=== PATIENT | female | born 1995 | race African-American/Black ===

== ENCOUNTER → 2018-06-21 | Outpatient (CLI) | payer OTHER ==
--- NOTE | 2018-06-21 14:13 | KCIC ---
Right breast ultrasound: Reason for examination: Lump felt clinically in the right breast at the 10:00 position 5 cm from the nipple. Ultrasound examination of the right breast was performed in the area of clinical concern in the 10:00 position 5 cm from the nipple and in the upper outer quadrant and right axilla. There is some focal dense fibroglandular tissue with some minimal heterogeneity in the 10:00 position but a discrete nodule is not identified within this tissue. No other focal lesions are seen in the upper outer quadrant. No abnormal appearing lymph nodes are seen in the right axilla. IMPRESSION: Focal dense fibroglandular tissue in the upper outer quadrant with some mild heterogeneity in the 10:00 position. No discrete nodules are seen however. Recommend reevaluation with ultrasound 3 months. BI-RADS Category 3: Probably Benign. "Our facility is accredited by the [employer] Mammography [employer]." This patient's information has been entered into a reminder system for the patient to be notified with the results of her examination and a target date for the next mammogram. Electronically signed by: Renu Galdamez MD (06/21/2018 2:09 PM) [id number]
--- NOTE | 2018-06-21 14:33 | KCIC ---
Pelvic ultrasound Clinical Indication: Pelvic pain.. . TRANSABDOMINAL SCAN Suboptimal visualization of uterus and adnexa. TRANSVAGINAL SCAN Uterus: * Size (in centimeters): 6.5 cm x 3.8 cm x 5.5 cm * Appearance: Partially septated appearance of the endometrial canal. The right endometrium measures 9.8 mm. The left endometrium measures 6.6 mm. The septum does not involve the cervix. There is a small lesion at the posterior left uterus, most likely a fibroid measuring 17 mm diameter. Right ovary: * Size: 3.4 cm long axis. * Blood flow: Intact * Appearance: Small follicles Left ovary: * Size: 3.0 cm long axis. * Blood flow: Intact * Appearance: Complex nodule measuring 11 mm demonstrates hypervascularity at its peripheral aspect. Free fluid: Mild fluid in the cul-de-sac and in the right adnexa. IMPRESSION: 1. Subseptate uterus. 2. Small left uterine lesion most likely a 17 mm fibroid. 3. Complex hypervascular nodule left ovary, indeterminate etiology. Recommend short-term ultrasound follow-up in 2-6 weeks. 4. Mild pelvic fluid. Electronically signed by: Tony Hernandez MD (06/21/2018 2:28 PM) [id number]
== END | disposition home or self-care (01) ==
LOC: KCIC US 12:09
PROVIDERS: ATTEND Obstetrics & Gynecology
DX: N63.11 Unspecified lump in the right breast, upper outer quadrant (principal); N85.9 Noninflammatory disorder of uterus, unspecified
CPT/HCPCS: 76641; 76830; 76856

== ENCOUNTER → 2018-11-04 | Outpatient (CLI) | payer SELFPAY ==
--- NOTE | 2018-11-04 14:51 | KCIC ---
Right breast ultrasound: Reason for examination: Follow-up lump felt by clinician. Patient no longer feels the lump. Comparison is made to previous study dated 06/21/2018. Ultrasound examination was performed in the area of clinical concern and the right axilla. There is dense fibroglandular tissue and there is some ductal ectasia in the subareolar positions. There are no discrete cystic or solid nodules. No abnormal appearing lymph nodes are seen in the axilla. IMPRESSION: Dense parenchyma with some ductal ectasia. No suspicious abnormality seen. Recommend clinical correlation and routine mammographic follow-up. BI-RADS Category 2: Benign. "Our facility is accredited by the [employer] Mammography [employer]." This patient's information has been entered into a reminder system for the patient to be notified with the results of her examination and a target date for the next mammogram. Electronically signed by: Renu Galdamez MD (11/04/2018 2:48 PM) [id number]
== END | disposition home or self-care (01) ==
LOC: KCIC US 12:51
PROVIDERS: ATTEND Surgery
DX: N60.41 Mammary duct ectasia of right breast (principal)
CPT/HCPCS: 76641

== ENCOUNTER 2019-12-18 11:17 | Emergency (ER) | payer SELFPAY ==
[~2019-12-18] VITALS: Ht 175.3 cm; Wt 128.0 kg
[2019-12-18] MEDS ORDERED: IV NORMAL SALINE 1000ML BAG 1,000 ML IV ONE (11:45)
[2019-12-18] MEDS ORDERED: METOPROLOL TARTRATE 5 MG/5 ML VIAL. IVP ONE (11:45)
[2019-12-18 11:58] LABS: BASO % 0 % (0-3); EOS # 0.2 x10^3/uL (0.0-0.7); EOS % 3 % (0-3); HEMATOCRIT 34.6 % (36.0-47.0); HEMOGLOBIN 11.7 g/dL (12.0-15.5); LYMPH # 1.3 x10^3/uL (1.0-4.8); LYMPH % 22 % (24-48); MEAN CORPUSCULAR HEMOGLOBIN 29 pg (25-35); MEAN CORPUSCULAR HGB CONC 34 g/dL (31-37); MEAN CORPUSCULAR VOLUME 87 fL (79-100); MONO # 0.5 x10^3/uL (0.0-1.1); MONO % 8 % (0-9); NEUT # 4.2 x10^3/uL (1.8-7.7); NEUT % 67 % (31-73); PLATELET COUNT 255 x10^3/uL (140-400); RED CELL DISTRIBUTION WIDTH 13.5 % (11.5-14.5); WHITE BLOOD COUNT 6.2 x10^3/uL (4.0-11.0)
[2019-12-18 12:06] LABS: PROTHROMBIN TIME PATIENT 14.7 SEC (11.7-14.0)
[2019-12-18 12:08] LABS: CALCIUM 8.7 mg/dL (8.5-10.1); GFR 82.4; POTASSIUM 3.8 mmol/L (3.5-5.1)
[2019-12-18 12:13] LABS: ALBUMIN 3.1 g/dL (3.4-5.0); ALBUMIN/GLOBULIN RATIO 0.7 (1.0-1.7); MAGNESIUM 1.7 mg/dL (1.8-2.4); TOTAL BILIRUBIN 0.5 mg/dL (0.2-1.0); TOTAL PROTEIN 7.3 g/dL (6.4-8.2)
[2019-12-18 12:21] LABS: BILIRUBIN,URINE SMALL (NEG); CLARITY,URINE CLEAR; COLOR,URINE YELLOW; NITRITE,URINE NEGATIVE (NEG); PROTEIN,URINE 30 mg/dL (NEG-TRACE)
[2019-12-18 12:25] LABS: BARBITURATES NEG (NEG); BENZODIAZEPINES NEG (NEG); CANNABINOIDS NEG (NEG); COCAINE NEG (NEG); METHADONE NEG (NEG); OPIATES NEG (NEG); PHENCYCLIDINE NEG (NEG)
[2019-12-18 12:29] LABS: BACTERIA,URINE 0 /HPF (0-FEW); RBC,URINE 0 /HPF (0-2); SQUAMOUS EPITHELIAL CELL,UR FEW /LPF; WBC,URINE 0 /HPF (0-4)
[2019-12-18] MEDS ORDERED: IOHEXOL 350 MG/ML 100 ML VIAL. IV ONE (12:30)
[2019-12-18] MEDS ORDERED: CONTRAST GIVEN. MC PRN (12:30)
[2019-12-18 12:36] LABS: AMPHETAMINE/METHAMPHETAMINE NEG (NEG)
[2019-12-18 12:52] VITALS: BP 128/85
--- NOTE | 2019-12-18 13:05 | PHYS DOC ---
Past Medical History Past Medical History: No Pertinent History Past Surgical History: Cholecystectomy Smoking Status: Never Smoker Alcohol Use: None General Adult EDM: Chief Complaint: RAPID HEART RATE HPI: HPI: Patient is a 24-year-old female who is a few days postop of a laparoscopic cholecystectomy. She is also traveled here from [place]. She presents with an elevated heart rate as well as complaints of shortness of breath with exertion. She denies any fever chills or sweats. She states she does not have any significant abdominal pain. She denies hemoptysis. She is not had any cough or congestion. She denies any lower extremity swelling. She states the primary thing that is bothering her today is that she has an elevated heart rate. [] Review of Systems: Review of Systems: Constitutional: Denies fever or chills. [] Eyes: Denies change in visual acuity. [] HENT: Denies nasal congestion or sore throat. [] Respiratory: Per HPI [] Cardiovascular: Palpitations as described in the HPI. [] GI: Denies abdominal pain, nausea, vomiting, bloody stools or diarrhea. [] : Denies dysuria. [] Musculoskeletal: Denies back pain or joint pain. [] Integument: Denies rash. [] Neurologic: Denies headache, focal weakness or sensory changes. [] Endocrine: Denies polyuria or polydipsia. [] Lymphatic: Denies swollen glands. [] Psychiatric: Reports anxiety [] Heart Score: Risk Factors: Risk Factors: DM, Current or recent (<one month) smoker, HTN, HLP, family history of CAD, obesity. Risk Scores: Score 0 - 3: 2.5% MACE over next 6 weeks - Discharge Home Score 4 - 6: 20.3% MACE over next 6 weeks - Admit for Clinical Observation Score 7 - 10: 72.7% MACE over next 6 weeks - Early Invasive Strategies Current Medications: Current Medications Medications (Trade) Dose Ordered Sig/Erik Start Time Stop Time Status Last Admin Dose Admin Info (CONTRAST GIVEN -- Rx MONITORING) 1 each PRN DAILY PRN 12/18/19 12:30 12/20/19 12:29 Iohexol (Omnipaque 350 Mg/ml) 100 ml 1X ONCE 12/18/19 12:30 12/18/19 12:31 DC Metoprolol Tartrate (Lopressor Vial) 5 mg 1X ONCE 12/18/19 11:45 12/18/19 11:53 DC Sodium Chloride 1,000 ml @ 1,000 mls/hr 1X ONCE 12/18/19 11:45 12/18/19 12:44 DC 12/18/19 12:16 1,000 MLS/HR Allergies: Allergies: Allergies Coded Allergies Type Severity Reaction Last Updated Verified No Known Drug Allergies 12/18/19 No Physical Exam: PE: Constitutional: Well developed, well nourished, mild distress, non-toxic appearance. [] HENT: Normocephalic, atraumatic, bilateral external ears normal, oropharynx moist, no oral exudates, nose normal. [] Eyes: PERRLA, EOMI, conjunctiva normal, no discharge. [] Neck: Normal range of motion, no tenderness, supple, no stridor. [] Cardiovascular: Tachycardic no murmur [] Lungs & Thorax: Bilateral breath sounds clear to auscultation [] Abdomen: Bowel sounds normal, soft, no tenderness, no masses, no pulsatile masses. [] Skin: Warm, dry, no erythema, no rash. [] Back: No tenderness, no CVA tenderness. [] Extremities: No tenderness, no cyanosis, no clubbing, ROM intact, no edema. [] Neurologic: Alert and oriented X 3, normal motor function, normal sensory function, no focal deficits noted. [] Psychologic: Very anxious [] Current Patient Data: Labs: Laboratory Tests Test 12/18/19 11:50 12/18/19 12:04 12/18/19 12:10 White Blood Count 6.2 x10^3/uL (4.0-11.0) Red Blood Count 4.00 x10^6/uL (3.50-5.40) Hemoglobin 11.7 g/dL (12.0-15.5) L Hematocrit 34.6 % (36.0-47.0) L Mean Corpuscular Volume 87 fL (79-100) Mean Corpuscular Hemoglobin 29 pg (25-35) Mean Corpuscular Hemoglobin Concent 34 g/dL (31-37) Red Cell Distribution Width 13.5 % (11.5-14.5) Platelet Count 255 x10^3/uL (140-400) Neutrophils (%) (Auto) 67 % (31-73) Lymphocytes (%) (Auto) 22 % (24-48) L Monocytes (%) (Auto) 8 % (0-9) Eosinophils (%) (Auto) 3 % (0-3) Basophils (%) (Auto) 0 % (0-3) Neutrophils # (Auto) 4.2 x10^3/uL (1.8-7.7) Lymphocytes # (Auto) 1.3 x10^3/uL (1.0-4.8) Monocytes # (Auto) 0.5 x10^3/uL (0.0-1.1) Eosinophils # (Auto) 0.2 x10^3/uL (0.0-0.7) Basophils # (Auto) 0.0 x10^3/uL (0.0-0.2) Prothrombin Time 14.7 SEC (11.7-14.0) H Prothrombin Time INR 1.2 (0.8-1.1) H Sodium Level 140 mmol/L (136-145) Potassium Level 3.8 mmol/L (3.5-5.1) Chloride Level 105 mmol/L (98-107) Carbon Dioxide Level 23 mmol/L (21-32) Anion Gap 12 (6-14) Blood Urea Nitrogen 17 mg/dL (7-20) Creatinine 1.0 mg/dL (0.6-1.0) Estimated GFR (Cockcroft-Gault) 82.4 BUN/Creatinine Ratio 17 (6-20) Glucose Level 85 mg/dL (70-99) Calcium Level 8.7 mg/dL (8.5-10.1) Magnesium Level 1.7 mg/dL (1.8-2.4) L Total Bilirubin 0.5 mg/dL (0.2-1.0) Aspartate Amino Transferase (AST) 18 U/L (15-37) Alanine Aminotransferase (ALT) 27 U/L (14-59) Alkaline Phosphatase 85 U/L (46-116) Troponin I Quantitative < 0.017 ng/mL (0.000-0.055) Total Protein 7.3 g/dL (6.4-8.2) Albumin 3.1 g/dL (3.4-5.0) L Albumin/Globulin Ratio 0.7 (1.0-1.7) L Thyroid Stimulating Hormone (TSH) 3.485 uIU/mL (0.358-3.74) Urine Color Yellow Urine Clarity Clear Urine pH 6.0 (<5.0-8.0) Urine Specific [place] 1.025 (1.000-1.030) Urine Protein 30 mg/dL (NEG-TRACE) Urine Glucose (UA) Negative mg/dL (NEG) Urine Ketones (Stick) >=80 mg/dL (NEG) Urine Blood Negative (NEG) Urine Nitrite Negative (NEG) Urine Bilirubin Small (NEG) Urine Urobilinogen Dipstick 1.0 mg/dL (0.2 mg/dL) Urine Leukocyte Esterase Negative (NEG) Urine RBC 0 /HPF (0-2) Urine WBC 0 /HPF (0-4) Urine Squamous Epithelial Cells Few /LPF Urine Bacteria 0 /HPF (0-FEW) Urine Opiates Screen Neg (NEG) Urine Methadone Screen Neg (NEG) Urine Barbiturates Neg (NEG) Urine Phencyclidine Screen Neg (NEG) Urine Amphetamine/Methamphetamine Neg (NEG) Urine Benzodiazepines Screen Neg (NEG) Urine Cocaine Screen Neg (NEG) Urine Cannabinoids Screen Neg (NEG) Urine Ethyl Alcohol Neg (NEG) POC Urine HCG, Qualitative Hcg negative (Negative) Laboratory Tests 12/18/19 11:50 Laboratory Tests 12/18/19 11:50 Vital Signs: Vital Signs Date Time Temp Pulse Resp B/P (MAP) Pulse Ox O2 Delivery O2 Flow Rate FiO2 12/18/19 11:55 82 16 100 12/18/19 11:30 98.2 156/87 (110) Room Air 98.2 EKG: EKG: [EKG: Normal sinus rhythm rate of [address]-T changes] Radiology/Procedures: Radiology/Procedures: [] Impression: PROCEDURE: CT ANGIOGRAPHY CHEST Examination: CT ANGIOGRAPHY CHEST History: Reason: shortness of breath suspected pulmonary embolus / Spl. Instructions: IV OMNI 350 100 MLS / History: Comparison/Correlation: None Findings: Axial images of the chest were obtained following IV contrast according to pulmonary arteriography protocol. Sagittal and coronal reformatted images were provided. Pulmonary arterial vasculature is normal with no thromboembolic disease. No infiltrates. No pneumothorax. No suspicious pulmonary nodule or mass lesions. Very small pleural effusions are present. Suture material of the stomach is evident. Surgical clips involve the left upper abdomen. Cholecystectomy. Bony structures are unremarkable. Impression: No PE. No infiltrate. Very small pleural effusions. Course & Med Decision Making: Course & Med Decision Making Pertinent Labs and Imaging studies reviewed. (See chart for details) [] Saschaon Disclaimer: Bubba Disclaimer: This electronic medical record was generated, in whole or in part, using a voice recognition dictation system. Departure Departure Impression: Primary Impression: Palpitations Additional Impression: Dyspnea on exertion Disposition: HOME, SELF-CARE Condition: STABLE Referrals: ISIDORO DEVINE MD (PCP) Patient Instructions: Palpitations Additional Instructions: Return to the emergency department with any new or concerning symptoms. It is very important that you follow with Dr. Devine as soon as possible. Justicifation of Admission Dx: Justifications for Admission: Justification of Admission Dx: No ERNESTINA MELÉNDEZ DO Dec 18, 2019 13:05
--- NOTE | 2019-12-18 13:06 | RAD ---
Examination: CT ANGIOGRAPHY CHEST History: Reason: shortness of breath suspected pulmonary embolus / Spl. Instructions: IV OMNI 350 100 MLS / History: Comparison/Correlation: None Findings: Axial images of the chest were obtained following IV contrast according to pulmonary arteriography protocol. Sagittal and coronal reformatted images were provided. Pulmonary arterial vasculature is normal with no thromboembolic disease. No infiltrates. No pneumothorax. No suspicious pulmonary nodule or mass lesions. Very small pleural effusions are present. Suture material of the stomach is evident. Surgical clips involve the left upper abdomen. Cholecystectomy. Bony structures are unremarkable. Impression: No PE. No infiltrate. Very small pleural effusions. PQRS Compliance Statement: One or more of the following individualized dose reduction techniques were utilized for this examination: 1. Automated exposure control 2. Adjustment of the mA and/or kV according to patient size 3. Use of iterative reconstruction technique Electronically signed by: Tico Paul MD (12/18/2019 1:03 PM) [id number]
--- NOTE | 2019-12-20 04:39 | EKG ---
[facility] [address] [place] [address] Test Date: 2019-12-18 Test Time: 11:31:15 Pat Name: NELI SHELTON Department: Room: Gender: F Curing Room Supervisor: : 1995 Requested By: ERNESTINA MELÉNDEZ Order Number: [id number] Reading MD: Measurements Intervals [place] Rate: 91 P: 59 MD: 158 QRS: 21 QRSD: 84 T: 22 QT: 366 QTc: 452 Interpretive Statements SINUS RHYTHM NO SPECIFIC ECG ABNORMALITIES RI6.01 No previous ECG available for comparison
== END 2019-12-18 14:15 | disposition home or self-care (01) ==
LOC: ER 11:17
DX: R06.09 Other forms of dyspnea (principal); R00.2 Palpitations; R06.02 Shortness of breath; Z90.49 Acquired absence of other specified parts of digestive tract; Z79.899 Other long term (current) drug therapy
CPT/HCPCS: 36415; 71275; 80053; 80307; 81001; 81025; 83735; 84443; 84484; 85025; 85610; 99285; J7030; Q9967; 93005

== ENCOUNTER 2020-04-16 01:32 | Emergency (ER) | payer SELFPAY ==
[~2020-04-16] VITALS: Ht 175.3 cm; Wt 113.6 kg
[2020-04-16 01:44] VITALS: BP 124/93
--- NOTE | 2020-04-16 01:50 | PHYS DOC ---
Past Medical History Past Medical History: No Pertinent History Past Surgical History: Cholecystectomy Smoking Status: Never Smoker Alcohol Use: None General Adult EDM: Chief Complaint: LOWER EXT PAIN HPI: HPI: History obtained for the patient. Patient is a 24-year-old female with a history of gastric sleeve surgery 4 months ago who presents with chief complaint of lower extremity pain. Patient states 2 weeks ago she began developing right posterior calf pain. States the pain transition to her left posterior calf and is now present in her left anterior thigh. Denies swelling. Denies redness. Denies increase in warmth. Denies trauma or injury. 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 Her greatest concern is that she may have a blood clot. She denies any immobilizations. Denies any history of blood clot in legs or lungs. Does not take any oral contraceptive medication. Denies smoking. Has not taken any pain medication prior to arrival because she states she does not want to. States pain is aching in nature. No other complaints. Review of Systems: Review of Systems: Constitutional: Denies fever or chills. [] Eyes: Denies change in visual acuity. [] HENT: Denies nasal congestion or sore throat. [] Respiratory: Denies cough or shortness of breath. [] Cardiovascular: Denies chest pain or edema. [] GI: Denies abdominal pain, nausea, vomiting, bloody stools or diarrhea. [] : Denies dysuria. [] Musculoskeletal: Positive for leg pain Integument: Denies rash. [] Neurologic: Denies headache, focal weakness or sensory changes. [] Endocrine: Denies polyuria or polydipsia. [] Lymphatic: Denies swollen glands. [] Psychiatric: Denies depression or anxiety. [] Heart Score: Risk Factors: Risk Factors: DM, Current or recent (<one month) smoker, HTN, HLP, family history of CAD, obesity. Risk Scores: Score 0 - 3: 2.5% MACE over next 6 weeks - Discharge Home Score 4 - 6: 20.3% MACE over next 6 weeks - Admit for Clinical Observation Score 7 - 10: 72.7% MACE over next 6 weeks - Early Invasive Strategies Allergies: Allergies: Allergies Coded Allergies Type Severity Reaction Last Updated Verified No Known Drug Allergies 12/18/19 No Physical Exam: PE: Constitutional: Well developed, well nourished, no acute distress, non-toxic appearance. [] HENT: Normocephalic, atraumatic, bilateral external ears normal, oropharynx moist, no oral exudates, nose normal. [] Eyes: PERRLA, EOMI, conjunctiva normal, no discharge. [] Neck: Normal range of motion, no tenderness, supple, no stridor. [] Cardiovascular:Heart rate regular rhythm, no murmur [] Lungs & Thorax: Bilateral breath sounds clear to auscultation [] Abdomen: Bowel sounds normal, soft, no tenderness, no masses, no pulsatile masses. [] Skin: Warm, dry, no erythema, no rash. [] Back: No tenderness, no CVA tenderness. [] Extremities: No tenderness, no cyanosis, no clubbing, ROM intact, no edema. [] Neurologic: Alert and oriented X 3, normal motor function, normal sensory function, no focal deficits noted. [] Psychologic: Affect normal, judgement normal, mood normal. [] Current Patient Data: Vital Signs: Vital Signs Date Time Temp Pulse Resp B/P (MAP) Pulse Ox O2 Delivery O2 Flow Rate FiO2 04/16/20 01:44 98.6 80 16 124/93 (103) 100 Room Air 98.6 EKG: EKG: [] Radiology/Procedures: Radiology/Procedures: [] Course & Med Decision Making: Course & Med Decision Making Pertinent Labs and Imaging studies reviewed. (See chart for details) [] Patient is a well-appearing 24-year-old female presents with chief complaint of bilateral leg pain. Her only concern is that she may have a DVT. Ultrasounds obtained and was negative for DVT. Plain film imaging did not feel we will any further diagnostic information given she denies any trauma. Patient does not want any further work-up performed. She was encouraged to use [id number] measures at home for relief. Return precautions discussed and understood. Stable for discharge. Bubba Disclaimer: Bubba Disclaimer: This electronic medical record was generated, in whole or in part, using a voice recognition dictation system. Departure Departure Impression: Primary Impression: Leg pain, bilateral Disposition: 01 DC HOME SELF CARE/HOMELESS Condition: STABLE Referrals: ISIDORO GAITAN MD (PCP) Patient Instructions: Leg Cramps MITCHELL JARAMILLO DO Apr 16, 2020 01:50
--- NOTE | 2020-04-16 02:43 | RAD ---
Bilateral Lower Extremity Venous Doppler Ultrasound History: Reason: B/L LE pain / Spl. Instructions: / History: Comparison: None Procedure: Color flow, duplex, spectral analysis and 2D images are obtained with and without compression in the area of the common femoral vein, superficial femoral vein - femoral vein junction, main femoral vein (superficial femoral vein) and popliteal vein. Veins of the proximal calf are also imaged. Findings: There is normal duplex flow, color flow and compressibility of all visualized vein segments. No evidence of deep venous thrombus is present. Impression: No evidence of DVT. Electronically signed by: Andre Garcia III, MD (04/16/2020 2:40 AM) JERMAINE
== END 2020-04-16 02:44 | disposition home or self-care (01) ==
LOC: ER 01:32
DX: M79.604 Pain in right leg (principal); M79.605 Pain in left leg; Z90.49 Acquired absence of other specified parts of digestive tract
CPT/HCPCS: 93970; 99284

== ENCOUNTER → 2020-05-08 | Outpatient (CLI) | payer BC ==
[2020-04-16 01:44] VITALS: BP 124/93
--- NOTE | 2020-05-08 16:44 | KCIC ---
AP and Lateral Views of the Chest 05/08/2020 12:00 AM Indication: Reason: SCREENING FOR TB, NO CURRENT SX / Spl. Instructions: / History: Comparison: CT angiography of the chest December 18, 2019 Findings: There is no focal consolidation or infiltrate identified. The cardiomediastinal silhouette is within normal limits. There is no evidence of pneumothorax or pleural effusion. No acute osseous abnormalities are identified. Impression: No evidence of acute cardiopulmonary process. Electronically signed by: Jamie So MD (05/08/2020 4:41 PM) [id number]
== END ==
LOC: KCIC 15:34
PROVIDERS: ATTEND Family Medicine
DX: Z11.1 Encounter for screening for respiratory tuberculosis (principal)
CPT/HCPCS: 71046

== ENCOUNTER → 2021-08-28 | Outpatient (CLI) | payer BC, OTHER ==
--- NOTE | 2021-08-28 13:15 | KCIC ---
XR CHEST 2V INDICATION: SCREENING FOR TB, NO CURRENT SX / Spl. Instructions: / History: . COMPARISON STUDY: None. FINDINGS: Lungs: Normal lung volume. No pulmonary mass or consolidation. The tracheobronchial tree and hilar st ructures are normal. Pleura: No pleural effusion or pneumothorax. Heart and Mediastinum: The cardiomediastinal silhouette is normal. The great vessels of the thorax ar e normal. Bones and Soft Tissues: The bones and soft tissues are within normal limits. IMPRESSION: No acute cardiopulmonary process. Electronically signed by: Sean Arvizu MD (08/28/2021 1:13 PM) [id number]
--- NOTE | 2021-08-28 14:00 | KCIC ---
EXAM: Pelvic ultrasound HISTORY: Pelvic pain, uterine fibroids. COMPARISON: 06/21/2018. FINDINGS: Sonographic evaluation of the pelvis was performed transabdominally and transvaginally. The uterus is anteverted and measures 9.4 x 6.1 x 4.0 cm. The endometrial stripe measures 13 mm. Endo metrial morphology suggests a small uterine septum. A subserosal fibroid along the left aspect of the uterine fundus measures 5.1 x 5.1 x 4.2 cm. There is no significant free fluid. The right ovary measures 2.5 x 1.6 x 1.4 cm. The left ovary measures 2.7 x 3.2 x 1.5 cm. There is nor mal Doppler flow bilaterally. There are no suspicious lesions. IMPRESSION: 1. 5.1 x 5.1 cm subserosal fibroid along the left aspect of the uterine fundus. 2. Endometrial morphology suggests a small uterine septum. MRI could better define uterine morphology if there is persistent concern. Electronically signed by: Alex Petit MD (08/28/2021 1:57 PM) [id number]
== END ==
LOC: KCIC US 10:46
PROVIDERS: ATTEND Family Medicine
DX: R10.2 Pelvic and perineal pain (principal); D25.2 Subserosal leiomyoma of uterus; N85.4 Malposition of uterus; Z11.1 Encounter for screening for respiratory tuberculosis
CPT/HCPCS: 71046; 76830; 76856